=== PATIENT | male | born 1990 | race Caucasian/White ===

== ENCOUNTER → 2018-02-02 | Emergency (ER) | payer OTHER ==
[~2018-02-02] VITALS: Ht 180.3 cm; Wt 77.1 kg
== END | disposition left against medical advice (07) ==
LOC: ER 13:41
DX: Z53.20 Procedure and treatment not carried out because of patient's decision for unspecified reasons (principal)

== ENCOUNTER 2021-08-21 15:13 | Outpatient (CLI) | payer OTHER | END 2021-08-21 15:22 | disposition home or self-care (01) | LOC: RAD 15:13 | PROVIDERS: ATTEND Orthopaedic Surgery | DX: M25.562 Pain in left knee (principal); M25.572 Pain in left ankle and joints of left foot ==